=== PATIENT | female | born 1935 | race Caucasian/White ===

== ENCOUNTER → 2017-07-16 | Outpatient (CLI) | payer MEDICARE, BC ==
[~2017-07-16] MED LIST: ASPERDRINK81 MG PO; ASPIRIN PO; ASPIRIN81 M1 PO; ASPIRIN81 MG PO; BACITRACIN30 GM TOP; BACTRIM DS TABL1 TA1 PO; BACTRIM DS TABL1 TA2 PO; CARVEDILOL12.5 MG PO; CELEBREX PO; CLONAZEPAM0.5 MG PO; COREG12.5 MG PO; DARVOCET-N 1001 TAB PO; DILANTIN KAPSE100 MG; DILANTIN PO; EVISTA60 M1 PO; EVISTA60 MG PO; FOSAMAX PO; KEFLEX500 M1 PO; KEPPRA750 MG PO; KLONOPIN PO; KLONOPIN0.5 M1 PO; KRISTALOSE PO; LANSOPRAZOLE30 MG PO; LASIX20 MG PO; LISINOPRIL20 MG PO; LORTAB 5/500 TA1 TA1 PO; MULTI VITAMIN1 EACH PO; MULTI-VITAMIN1 TAB PO; MYSOLINE250 M1 PO; ONE DAILY1 EACH PO; PHENOBARB PO; PREVACID PO; PRIMIDONE250 MG PO; STOOL SOFTENER1 EAC1 PO; TUMS CALCI300 MG( 75 PO; TUMS500 MG PO; VITAMIN D2000 UNIT PO; [UNRECOGNIZED DRUG - OTHER] PO; [UNRECOGNIZED DRUG - OTHER] PO
--- NOTE | ~2017-07-16 | BD1 ---
[facility]. [facility] A Service of [facility] & [facility] RADIOLOGY TEXT RESULTS PATIENT: JESSICA LUO LOCATION: [facility] : 33 UNIT #: [id number] AGE: [address]: Jessica Acevedo MD SEX: F ORDER DR: [id number] [place] [id number] O MR#: [id number] Acc #: [id number] NAME: JESSICA LUO : 1935 SEX: F STUDY DATE/TIME: 07/16/2017 10:33 UNIT: SRAD ROOM: STUDY DESCRIPTION: Dexa Bone Dens 1+ Site Attending Physician: Jessica Acevedo M.D. Referring Physician: Jessica Acevedo M.D. Ordering Physician: Jessica Acevedo M.D. Primary Care Physician: Fortunato Mccormick M.D. MEDICAL IMAGING REPORT This report is preliminary unless electronic signature is present. EXAM DXA scan, 07/16/2017. HISTORY Status post menopause with no hormone replacement therapy. Osteopenia. Hypertension with blood pressure medication for 4 years. Anticonvulsant use for 53 years. FINDINGS Bone mineral density in the lumbar spine from L1 through L4 is 1.029 g/cm2 which is 1.3 standard deviations below the mean when compared to the young adult reference population which is characteristic of osteopenia. This is 0.9 standard deviations above the mean when compared to the age-matched population. Compared with 12/21/2015, there has been an increase in bone mineral density in the lumbar spine of 7.1%. Bone mineral density in the left femoral neck was 0.647 g/cm2 which is 2.8 standard deviations below the mean when compared to the young adult reference population which is characteristic of osteoporosis. This is 0.3 standard deviations below the mean when compared to the age-matched population. Compared with 12/21/2015, there has been a decrease in bone mineral density in the left hip of 1.5%. Bone mineral density in the right femoral neck was 0.697 g/cm2 which is 2.5 standard deviations below the mean when compared to the young adult reference population which is characteristic of osteoporosis. This is 0 standard deviations from the mean when compared to the age-matched population. Compared with 12/21/2015, there has been a decrease in bone mineral density in the right hip of 1.4%. IMPRESSION Bone mineral density in the lumbar spine characteristic of osteopenia and within the hips bilaterally characteristic of osteoporosis. Compared with 12/21/2015, there has been an increase in bone mineral density in the lumbar spine and a decrease in bone mineral density in the hips bilaterally. [facility] A Service of [facility] RADIOLOGY TEXT RESULTS PATIENT: JESSICA LUO LOCATION: [facility] : 33 UNIT #: [id number] AGE: [address]: Jessica Acevedo MD SEX: F ORDER DR: Dictated by... Juan Babin M.D. THIS IS AN ELECTRONICALLY VERIFIED REPORT Juan Babin M.D. at 07/17/2017 8:10 AM KELLI/edita TD: 07/16/2017 17:03 JOB #: [id number] MEDICAL IMAGING REPORT Page 1 of 1
== END | disposition home or self-care (01) ==
LOC: SRAD 07-14 11:00
DX: M81.0 Age-related osteoporosis without current pathological fracture (principal); M85.89 Other specified disorders of bone density and structure, multiple sites; Z78.0 Asymptomatic menopausal state
CPT/HCPCS: 77080